=== PATIENT | male | born 1965 | race Caucasian/White ===

== ENCOUNTER 2017-07-27 08:08 | Emergency (ER) | payer MEDICARE, OTHER ==
[2017-07-27] MEDS: ONDANSETRON (ODT) 4 MG TAB ODT (09:29)
[2017-07-27] MEDS: ACETAMINOPHEN 500 MG TAB PO (09:30)
[2017-07-27] MEDS: KETOROLAC 30 MG INJ IM (09:30)
== END 2017-07-27 10:41 | disposition home or self-care (01) ==
LOC: FTE 08:08
DX: J02.0 Streptococcal pharyngitis (principal); R11.0 Nausea
CPT/HCPCS: 87400; 87880; 96372; 99284-25